=== PATIENT | female | born 1960 | race American Indian/Alaskan Native ===

== ENCOUNTER 2019-01-02 13:02 | Emergency (ER) | payer OTHER ==
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
[2019-01-02] MEDS ORDERED: ULTRAM PO ONE (16:04)
[2019-01-02] MEDS ORDERED: IBUPROFEN PO ONE (16:04)
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
[2019-01-02 16:34] VITALS: BP 174/90
== END 2019-01-02 16:32 | disposition home or self-care (01) ==
LOC: ED 13:02
DX: S16.1XXA Strain of muscle, fascia and tendon at neck level, initial encounter (principal); M25.511 Pain in right shoulder; M25.512 Pain in left shoulder; I10 Essential (primary) hypertension; F17.200 Nicotine dependence, unspecified, uncomplicated; Z79.899 Other long term (current) drug therapy; V89.2XXA Person injured in unspecified motor-vehicle accident, traffic, initial encounter; Y93.89 Activity, other specified; Y92.488 Other paved roadways as the place of occurrence of the external cause; Y99.8 Other external cause status
CPT/HCPCS: 72040; 99283

== ENCOUNTER 2019-12-01 12:24 | Observation (INO) | payer OTHER ==
[2019-12-01] MEDS ORDERED: ASPIRIN 325 MG TAB PO ONE ×2 (12:29→15:05)
--- NOTE | 2019-12-01 13:11 | XRay Report ---
CHEST 1 VIEW INDICATION / CLINICAL INFORMATION: MAIN: Chest Pain x1 day. COMPARISON: None available. FINDINGS: SUPPORT DEVICES: None. HEART / MEDIASTINUM: No significant abnormality. LUNGS / PLEURA: No significant pulmonary or pleural abnormality. No pneumothorax. ADDITIONAL FINDINGS: No significant additional findings. IMPRESSION: 1. No acute findings. Signer Name: Moise Livingston MD Signed: 12/01/2019 1:07 PM Workstation Name: [id number]
[2019-12-01] MEDS ORDERED: MORPHINE 2 MG/1 ML INJ IV ONE (13:35)
[2019-12-01] MEDS ORDERED: ONDANSETRON 4 MG/2 ML INJ IV ONE (13:35)
[2019-12-01] MEDS ORDERED: NITROGLYCERIN 2% OINT 1 GM TP ONE (13:35)
--- NOTE | 2019-12-01 13:44 | Emergency Department Report ---
ED Chest Pain HPI - General Chief Complaint: Chest Pain Stated Complaint: CHEST PAIN Time Seen by Provider: 12/01/19 13:32 Source: patient Mode of arrival: Ambulatory Limitations: No Limitations - History of Present Illness Initial Comments: This is a 59-year-old female who states that she is noncompliant with her blood pressure medicine and has not seen a doctor "in a minute". She denies a history of chest pain or cardiovascular work-up or disease. She denies a family history of coronary artery disease or pulmonary embolism. She states that hypertension is her only medical problem. Patient developed chest pain yesterday afternoon. It is been it intermittent. She has trouble describing it. It is nonpleuritic and nonradiating. It is substernal in location. Patient does not describe associated nausea or vomiting. She has not been sweaty. She denies previous similar symptoms. MD Complaint: chest pain -: Gradual Onset: during rest Pain Location: substernal Pain Radiation: none Severity: moderate Quality: other (Unable to describe) Consistency: constant Improves With: nothing Worsens With: nothing re: denies: nausea, vomting, diaphoresis Other Symptoms: denies: cough, fever, syncope Treatments Prior to Arrival: none Aspirin use within the Past 7 Days: (0) No - Related Data Previous Rx's Medication Instructions Recorded Last Taken Type Ibuprofen [Motrin 600 MG tab] 600 mg PO Q8H PRN #20 tablet 01/02/19 Unknown Rx methOCARBAMOL [Robaxin TAB] 500 mg PO Q6H PRN #14 tablet 01/02/19 Unknown Rx traMADoL [Ultram] 50 mg PO Q6HR PRN #12 tablet 01/02/19 Unknown Rx Allergies Allergy/AdvReac Type Severity Reaction Status Date / Time No Known Allergies Allergy Unverified 01/02/19 13:07 Heart Score - HEART Score History: Moderately suspicious EKG: Non-specific Age: 45-65 Risk factors: 1-2 risk factors Troponin: < normal limit HEART Score: 4 - Critical Actions Critical Actions: 4-6 pts:12-16.6% risk of adverse cardiac event. Should be admitted ED Review of Systems ROS: Stated complaint: CHEST PAIN Other details as noted in HPI Constitutional: denies: chills, fever Eyes: denies: eye pain, eye discharge, vision change ENT: denies: ear pain, throat pain Respiratory: denies: cough, wheezing Cardiovascular: chest pain. denies: palpitations Endocrine: no symptoms reported Gastrointestinal: denies: abdominal pain, nausea, diarrhea Genitourinary: denies: urgency, dysuria, discharge Musculoskeletal: denies: back pain, joint swelling, arthralgia Skin: denies: rash, lesions Neurological: denies: headache, weakness, paresthesias Psychiatric: denies: anxiety, depression Hematological/Lymphatic: denies: easy bleeding, easy bruising ED Past Medical Hx - Past Medical History Previous Medical History?: Yes Hx Hypertension: Yes - Social History Smoking Status: Current Some Day Smoker Substance Use Type: None - Medications Home Medications: Home Medications Medication Instructions Recorded Confirmed Last Taken Type Ibuprofen [Motrin 600 MG tab] 600 mg PO Q8H PRN #20 tablet 01/02/19 Unknown Rx methOCARBAMOL [Robaxin TAB] 500 mg PO Q6H PRN #14 tablet 01/02/19 Unknown Rx traMADoL [Ultram] 50 mg PO Q6HR PRN #12 tablet 01/02/19 Unknown Rx ED Physical Exam - General Limitations: No Limitations General appearance: alert, in no apparent distress - Head Head exam: Present: atraumatic, normocephalic - Eye Eye exam: Present: normal appearance. Absent: scleral icterus - ENT ENT exam: Present: mucous membranes moist - Neck Neck exam: Present: normal inspection - Respiratory Respiratory exam: Present: normal lung sounds bilaterally. Absent: respiratory distress - Cardiovascular Cardiovascular Exam: Present: tachycardia, gallop. Absent: systolic murmur, diastolic murmur, rubs - GI/Abdominal GI/Abdominal exam: Present: soft, normal bowel sounds. Absent: distended, tenderness, guarding, rebound - Extremities Exam Extremities exam: Present: normal inspection. Absent: pedal edema, joint swelling, calf tenderness - Back Exam Back exam: Present: normal inspection - Neurological Exam Neurological exam: Present: alert, oriented X3, CN II-XII intact. Absent: motor sensory deficit - Psychiatric Psychiatric exam: Present: normal affect, normal mood - Skin Skin exam: Present: warm, dry, intact, normal color. Absent: rash ED Course Vital Signs 12/01/19 12/01/19 12/01/19 12:29 14:08 14:35 Temperature 99.0 F Pulse Rate 110 H 91 H 91 H Respiratory 16 Rate Blood Pressure 196/110 196/110 Blood Pressure 196/96 [Right] O2 Sat by Pulse 100 Oximetry 12/01/19 14:37 Temperature Pulse Rate 91 H Respiratory Rate Blood Pressure 196/110 Blood Pressure [Right] O2 Sat by Pulse Oximetry - Reevaluation(s) Reevaluation #1: No further complaints of chest pain. Titrating blood pressure down with labetalol. Patient will be admitted by the hospitalist service. 12/01/19 15:05 AMBERLY score - Amberly Score Age > 65: (0) No Aspirin use within the Past 7 Days: (0) No 3 or more CAD Risk Factors: (0) No 2 or more Angina events in past 24 hrs: (0) No Known CAD with more than 50% Stenosis: (0) No Elevated Cardiac Markers: (0) No ST Deviation Greater than 0.5mm: (1) Yes AMBERLY Score: 1 ED Medical Decision Making - Lab Data Result diagrams: 12/01/19 13:04 12/01/19 13:04 Laboratory Results - last 24 hr 12/01/19 12/01/19 13:04 13:37 WBC 6.2 RBC 4.51 Hgb 13.5 Hct 39.8 MCV 88 MCH 30 MCHC 34 RDW 14.5 Plt Count 215 Lymph % (Auto) 26.7 Bowie % (Auto) 9.4 H Eos % (Auto) 0.9 Baso % (Auto) 0.5 Lymph # 1.6 Bowie # 0.6 Eos # 0.1 Baso # 0.0 Seg Neutrophils % 62.5 Seg Neutrophils # 3.8 PT 12.4 INR 0.91 APTT 28.1 D-Dimer 205.17 Laboratory Results - last 24 hr 12/01/19 12/01/19 12/01/19 13:04 13:37 13:37 WBC 6.2 RBC 4.51 Hgb 13.5 Hct 39.8 MCV 88 MCH 30 MCHC 34 RDW 14.5 Plt Count 215 Lymph % (Auto) 26.7 Bowie % (Auto) 9.4 H Eos % (Auto) 0.9 Baso % (Auto) 0.5 Lymph # 1.6 Bowie # 0.6 Eos # 0.1 Baso # 0.0 Seg Neutrophils % 62.5 Seg Neutrophils # 3.8 PT 12.4 INR 0.91 APTT 28.1 D-Dimer 205.17 Magnesium 2.40 H Total Bilirubin 0.30 Direct Bilirubin < 0.2 Indirect Bilirubin 0.1 AST 21 ALT 22 Alkaline Phosphatase 95 Total Creatine Kinase 81 CK-MB (CK-2) 1.6 CK-MB (CK-2) Rel Index 1.9 NT-Pro-B Natriuret Pep 40.26 Total Protein 8.4 H Albumin 4.9 Albumin/Globulin Ratio 1.4 - EKG Data -: EKG Interpreted by Me EKG shows normal: sinus rhythm, axis, intervals, QRS complexes (Cool R wave in standard lead to consider LVH), ST-T waves (Nonspecific inferolateral ST depression) Rate: normal - EKG Data Interpretation: nonspecific ST-T wave liang - Radiology Data Radiology results: report reviewed (No acute process), image reviewed Critical care attestation.: If time is entered above; I have spent that time in minutes in the direct care of this critically ill patient, excluding procedure time. ED Disposition Clinical Impression: Accelerated hypertension Chest pain Qualifiers: Chest pain type: unspecified Qualified Code(s): R07.9 - Chest pain, unspecified Disposition: -09 OP ADMIT IP TO THIS HOSP Is pt being admited?: Yes Does the pt Need Aspirin: Yes Condition: Stable Instructions: Chest Pain (ED), Hypertension (ED) Time of Disposition: 15:06
[2019-12-01 14:04] LABS: Basophils % (Auto) 0.5 % (0.0-1.8); Eosinophils # (Auto) 0.1 K/mm3 (0.0-0.4); Eosinophils % (Auto) 0.9 % (0.0-4.3); Hematocrit 39.8 % (30.3-42.9); Hemoglobin 13.5 gm/dl (10.1-14.3); Lymphocytes # (Auto) 1.6 K/mm3 (1.2-5.4); Lymphocytes % (Auto) 26.7 % (13.4-35.0); Mean Corpuscular HGB Conc 34 % (30-34); Mean Corpuscular Volume 88 fl (79-97); Monocytes # (Auto) 0.6 K/mm3 (0.0-0.8); Monocytes % (Auto) 9.4 % (0.0-7.3); Platelet Count 215 K/mm3 (140-440); Red Blood Count 4.51 M/mm3 (3.65-5.03); Red Cell Distribution Width 14.5 % (13.2-15.2)
[2019-12-01 14:05] LABS: Partial Thromboplastin Time 28.1 Sec. (24.2-36.6)
[2019-12-01 14:09] LABS: INR 0.91 (0.87-1.13)
[2019-12-01 14:19] LABS: Alanine Aminotransferase 22 units/L (7-56); Albumin 4.9 g/dL (3.9-5); Creatine Kinase MB 1.6 ng/mL (0.0-4.0)
[2019-12-01 14:20] LABS: Bilirubin,Direct < 0.2 mg/dL (0-0.2)
[2019-12-01 14:22] LABS: BUN/Creatinine Ratio 17; Blood Urea Nitrogen 15 mg/dL (7-17); Hemolysis Index 35
--- NOTE | 2019-12-01 15:21 | History and Physical Report ---
History of Present Illness Chief complaint: My chest is hurting History of present illness: 59 YO Female with HTN, Nicotine Dependence, Medication Noncompliance presents to ED for evaluation. Patient acknowledges medication compliance and is currently lost to outpatient primary care physician follow-up. Patient acknowledges a family history of coronary artery disease. Patient states that she has experienced pain in her chest over the past 1 day with persistently worsening pain over the past 8 hours. Patient states that the pain is currently 68/10, substernal, nonradiating, crushing in nature, not worsened with exertion, not relieved with rest. Patient acknowledges decreased exercise tolerance. Patient transported to [facility] via private vehicle for further care and evaluation. Patient seen and evaluated in the emergency department. Lab and imaging studies reviewed. Patient found to have clinical symptoms consistent with angina as well as diastolic congestive heart failure. Patient found to have a blood pressure of 215/119 which is consistent with accelerated hypertension. Patient admitted to telemetry and initiated on chest pain protocol due to high risk for cardiac decompensation. Patient denies fever, chills, palpitations, productive cough, skin rash, recent ill contacts, or known exposure to COVID-19. No prior admission for review. No medication listed at time of admission for reconc iliation. Cardiology team consulted in ED. Past History Past Medical History: hypertension, other (See HPI) Past Surgical History: No surgical history, Other (Reviewed) Social history: smoking Family history: hypertension Medications and Allergies Allergies Allergy/AdvReac Type Severity Reaction Status Date / Time No Known Allergies Allergy Unverified 01/02/19 13:07 Home Medications Medication Instructions Recorded Confirmed Last Taken Type Ibuprofen [Motrin 600 MG tab] 600 mg PO Q8H PRN #20 tablet 01/02/19 Unknown Rx methOCARBAMOL [Robaxin TAB] 500 mg PO Q6H PRN #14 tablet 01/02/19 Unknown Rx traMADoL [Ultram] 50 mg PO Q6HR PRN #12 tablet 01/02/19 Unknown Rx Review of Systems Constitutional: no weight loss, no weight gain, no fever, no chills, no sweats Ears, nose, mouth and throat: no ear pain, no ear discharge, no tinnitis, no decreased hearing, no sinus pressure Breasts: no change in shape, no swelling, no mass Cardiovascular: chest pain, high blood pressure, decreased exercise tolerance, no edema, no syncope Respiratory: no cough, no hemoptysis, no shortness of breath Gastrointestinal: no nausea, no vomiting, no diarrhea, no constipation, no change in bowel habits Genitourinary Female: no dysmenorrhea, no pelvic pain, no flank pain, no urinary frequency, no urgency Rectal: no pain, no incontinence, no bleeding Musculoskeletal: no neck stiffness, no neck pain, no shooting arm pain, no arm numbness/tingling, no low back pain, no shooting leg pain Integumentary: no rash, no pruritis, no redness, no sores, no wounds Neurological: no head injury, no transient paralysis, no paralysis, no weakness, no parathesias, no numbness, no seizures Psychiatric: no anxiety, no memory loss, no change in sleep habits, no sleep disturbances, no insomnia, no hypersomnia Endocrine: no cold intolerance, no heat intolerance, no polyphagia, no excessive thirst, no polydipsia, no polyuria, no excessive sweating Hematologic/Lymphatic: no easy bruising, no easy bleeding, no lymphedema Allergic/Immunologic: no urticaria, no persistent infections Exam - Constitutional Vitals: Temp Pulse Resp BP Pulse Ox 99.0 F 82 16 175/103 100 12/01/19 12:29 12/01/19 15:15 12/01/19 12:29 12/01/19 15:15 12/01/19 12:29 General appearance: Present: mild distress - EENT Eyes: Present: PERRL ENT: hearing intact, clear oral mucosa - Neck Neck: Present: supple, normal ROM - Respiratory Respiratory effort: normal Respiratory: bilateral: CTA - Cardiovascular Heart Sounds: Present: S1 & S2. Absent: rub, click - Extremities Extremities: pulses symmetrical, No edema Peripheral Pulses: within normal limits - Abdominal General gastrointestinal: Present: soft, non-tender, non-distended, normal bowel sounds Female genitourinary: Present: normal - Integumentary Integumentary: Present: clear, warm, dry - Musculoskeletal Musculoskeletal: gait normal, strength equal bilaterally - Psychiatric Psychiatric: appropriate mood/affect, intact judgment & insight - Neurologic Neurologic: CNII-XII intact, moves all extremities HEART Score - HEART Score EKG: Non-specific Age: 45-65 Risk factors: 1-2 risk factors Troponin: Troponin T < 0.010 ng/mL (0.00-0.029) 12/01/19 13:04 Troponin: < normal limit - Critical Actions Critical Actions: 4-6 pts:12-16.6% risk of adverse cardiac event. Should be admitted Results - Labs CBC & Chem 7: 12/01/19 13:04 12/01/19 13:04 Labs: Abnormal lab results 12/01/19 12/01/19 12/01/19 Range/Units 13:04 13:04 13:37 [place] % (Auto) 9.4 H (0.0-7.3) % Glucose 117 H (65-100) mg/dL Magnesium 2.40 H (1.7-2.3) mg/dL Total Protein 8.4 H (6.3-8.2) g/dL Assessment and Plan - Patient Problems (1) Angina at rest Current Visit: Yes Status: Acute Plan to address problem: Serial cardiac enzymes, EKG, remote telemetry, submental oxygen, morphine, nitro, aspirin, cardiology team consulted in ED, stress test.. (2) Diastolic CHF Current Visit: Yes Status: Suspected Qualifiers: Heart failure chronicity: acute Qualified Code(s): I50.31 - Acute diastolic (congestive) heart failure Plan to address problem: Strict I's/O, monitor urine output every shift, blood pressure control, afterload reduction, supplemental oxygen, BNP, d-dimer, chest x-ray, (3) Accelerated hypertension Current Visit: No Status: Acute Plan to address problem: Monitor blood pressure every shift, IV hydralazine every 6 hours as needed for systolic blood pressure greater than 155, amlodipine 10 mg daily, hydrochlorothiazide 25 mg p.o. daily. (4) Nicotine dependence Current Visit: Yes Status: Acute Qualifiers: Nicotine product type: cigarettes Substance use status: in withdrawal Qualified Code(s): F17.213 - Nicotine dependence, cigarettes, with withdrawal Plan to address problem: Smoking cessation counseling, supportive care, behavior change counseling +15 minutes. (5) Noncompliance Current Visit: Yes Status: Acute Plan to address problem: Patient counseled regarding medication and outpatient physician follow-up compliance. Patient acknowledges understanding increased risk of and worsening disease. Patient reports that she will be more compliant in the future. (6) DVT prophylaxis Current Visit: Yes Status: Acute Plan to address problem: SCD to bilateral lower extremities while in bed, patient is ambulatory.
[2019-12-01 16:08] LABS: Bilirubin,Urine NEG (Negative); Blood,Urine NEG (Negative); Color,Urine Straw (Yellow); Protein,Urine <15 mg/dL mg/dL (Negative); Urobilinogen,Urine < 2.0 mg/dL (<2.0); WBC,Urine < 1.0 /HPF (0.0-6.0)
[2019-12-01 16:19] LABS: Amphetamine Screen,Urine PRESUMPTIVE NEGATIVE; Benzodiazepines Screen,Urine PRESUMPTIVE NEGATIVE; Cannabinoid Screen,Urine PRESUMPTIVE NEGATIVE; Cocaine Screen,Urine PRESUMPTIVE NEGATIVE; Methadone Screen,Urine PRESUMPTIVE NEGATIVE; Opiate Screen,Urine PRESUMPTIVE NEGATIVE
[2019-12-01] MEDS ORDERED: MORPHINE 4 MG/1 ML INJ IV PRN (17:53)
[2019-12-01] MEDS ORDERED: NITROGLYCERIN 0.4 MG TAB SUBL SL PRN (17:53)
[2019-12-01] MEDS ORDERED: ONDANSETRON 4 MG/2 ML INJ IV PRN (17:53)
[2019-12-01] MEDS ORDERED: ACETAMINOPHEN 325 MG TAB PO PRN (17:53)
[2019-12-01] MEDS ORDERED: ASPIRIN 81 MG TAB CHEW PO STA (17:53)
[2019-12-01] MEDS: hydroCHLOROthiazide 25 MG TAB PO SCH (18:14)
[2019-12-01] MEDS: amLODIPine 5 MG TAB PO SCH ×2 (18:19→18:28)
[2019-12-01] MEDS ORDERED: hydrALAZINE 20 MG/1 ML INJ ONE (18:51)
[2019-12-01] MEDS: hydrALAZINE 20 MG/1 ML INJ IV PRN (18:51)
[2019-12-01 18:57] LABS: Chol/HDL Ratio 4.57 %
[2019-12-01] MEDS: amLODIPine 10 MG TAB PO SCH (18:57)
[2019-12-02 06:28] LABS: BUN/Creatinine Ratio 14; Blood Urea Nitrogen 13 mg/dL (7-17); Calcium 10.1 mg/dL (8.4-10.2); Hemolysis Index 33
--- NOTE | 2019-12-02 08:33 | Consultation ---
History of Present Illness Consult date: 12/02/19 Consult reason: chest pain History of present illness: Impression HTN urgency, no evidence of CHF. Atypical chest pain Medical noncompliance, she ran out of BP meds. Tobacco abuse Results negative CV markers, normal NTproBNP CXR normal EKG sinus LVH. exam benign Plan Stress thallium on tuesday restart BP meds Past History Past Medical History: hypertension, other (See HPI) Past Surgical History: No surgical history, Other (Reviewed) Social history: smoking Family history: hypertension Medications and Allergies Allergies Allergy/AdvReac Type Severity Reaction Status Date / Time No Known Allergies Allergy Unverified 01/02/19 13:07 Home Medications Medication Instructions Recorded Confirmed Last Taken Type No Known Home Medications [No 12/01/19 12/01/19 Unknown History Reported Home Medications] Active Meds: Active Medications Acetaminophen (Tylenol) 650 mg PO Q4H PRN PRN Reason: Pain MILD(1-3)/Fever >100.5/DIEHL Amlodipine Besylate (Amlodipine) 10 mg PO QDAY [facility] Last Admin: 12/01/19 18:57 Dose: 10 mg Documented by: Hydralazine HCl (Apresoline) 10 mg IV Q6HR PRN PRN Reason: Hypertension Last Admin: 12/01/19 18:51 Dose: 10 mg Documented by: Hydrochlorothiazide (Hctz) 25 mg PO QDAY [facility] Last Admin: 12/01/19 18:14 Dose: 25 mg Documented by: Morphine Sulfate (Morphine) 1 mg IV Q4H PRN PRN Reason: Pain , Severe (7-10) Nitroglycerin (Nitrostat) 0.4 mg SL Q5M PRN PRN Reason: Chest Pain Ondansetron HCl (Zofran) 4 mg IV Q8H PRN PRN Reason: Nausea And Vomiting Sodium Chloride (Sodium Chloride Flush Syringe 10 Ml) 10 ml IV BID [facility] Last Admin: 12/01/19 21:59 Dose: 10 ml Documented by: Sodium Chloride (Sodium Chloride Flush Syringe 10 Ml) 10 ml IV PRN PRN PRN Reason: LINE FLUSH Sodium Chloride (Sodium Chloride Flush Syringe 10 Ml) 10 ml IV PRN PRN PRN Reason: LINE FLUSH Review of Systems All systems: negative (stated in impression) Physical Examination Vital Signs Temp Pulse Resp BP Pulse Ox 99.0 F 110 H 16 196/96 100 12/01/19 12:29 12/01/19 12:29 12/01/19 12:29 12/01/19 12:29 12/01/19 12:29 General appearance: no acute distress HEENT: Positive: PERRL Neck: Positive: neck supple Cardiac: Positive: Reg Rate and Rhythm, S1/S2 Lungs: Positive: Normal Exam Neuro: Positive: Grossly Intact Abdomen: Positive: Unremarkable, Soft Skin: Positive: Clear Extremities: Absent: edema Results 12/01/19 13:04 12/02/19 05:34 Cardiac Enzymes 12/01/19 Range/Units 13:37 AST 21 (5-40) units/L CK-MB (CK-2) 1.6 (0.0-4.0) ng/mL Coagulation 12/01/19 Range/Units 13:37 PT 12.4 (12.2-14.9) Sec. INR 0.91 (0.87-1.13) APTT 28.1 (24.2-36.6) Sec. Lipids 12/01/19 Range/Units 15:45 Triglycerides 169 H (2-149) mg/dL Cholesterol 238 H (50-199) mg/dL HDL Cholesterol 52 (40-59) mg/dL Cholesterol/HDL Ratio 4.57 % CBC 12/01/19 Range/Units 13:04 WBC 6.2 (4.5-11.0) K/mm3 RBC 4.51 (3.65-5.03) M/mm3 Hgb 13.5 (10.1-14.3) gm/dl Hct 39.8 (30.3-42.9) % Plt Count 215 (140-440) K/mm3 Lymph # 1.6 (1.2-5.4) K/mm3 [place] # 0.6 (0.0-0.8) K/mm3 Eos # 0.1 (0.0-0.4) K/mm3 Baso # 0.0 (0.0-0.1) K/mm3 Comprehensive Metabolic Panel 12/01/19 12/01/19 12/02/19 Range/Units 13:04 13:37 05:34 Sodium 140 138 (137-145) mmol/L Potassium 4.3 4.3 (3.6-5.0) mmol/L Chloride 103.0 95.9 L (98-107) mmol/L Carbon Dioxide 24 26 (22-30) mmol/L BUN 15 13 (7-17) mg/dL Creatinine 0.9 0.9 (0.7-1.2) mg/dL Glucose 117 H 126 H (65-100) mg/dL Calcium 10.0 10.1 (8.4-10.2) mg/dL Direct Bilirubin < 0.2 (0-0.2) mg/dL Indirect Bilirubin 0.1 mg/dL AST 21 (5-40) units/L ALT 22 (7-56) units/L Alkaline Phosphatase 95 (35-129) units/L Total Protein 8.4 H (6.3-8.2) g/dL Albumin 4.9 (3.9-5) g/dL
[2019-12-02] MEDS: hydroCHLOROthiazide 25 MG TAB PO SCH (09:42)
[2019-12-02] MEDS: amLODIPine 10 MG TAB PO SCH (09:42)
--- NOTE | 2019-12-02 12:59 | Progress Note ---
Assessment and Plan /Angina at rest Monitor with Serial cardiac enzymes, EKG, remote telemetry, placed on submental oxygen, morphine, nitro, aspirin, cardiology team consulted in ED, stress test sam am /Accelerated hypertension Monitor blood pressure every shift, IV hydralazine as needed for systolic blood pressure greater than 155, placed on amlodipine 10 mg daily, hydrochlorothiazide 25 mg p.o. daily. /Nicotine dependence Smoking cessation counseling done, cont supportive care, behavior change /Noncompliance Patient counseled regarding medication and outpatient physician follow-up compliance. Patient acknowledges understanding increased risk of and worsening disease. Patient reports that she will be more compliant in the future. /DVT prophylaxis SCD to bilateral lower extremities while in bed, patient is ambulatory. Subjective Date of service: 12/02/19 Interval history: Patient seen and examined. Medical records and medication list reviewed. No acute event overnight noted by the RN. Patient complains of intermittent chest pain, denies any difficulty breathing. Patient is tolerating diet. Discussed plan of care at bedside with patient. Objective - Constitutional Vitals: Vital Signs - 12hr 12/02/19 12/02/19 12/02/19 03:57 04:40 07:33 Temperature 98.2 F Pulse Rate 92 H 92 H Pulse Rate [ 92 H Apical] Pulse Rate [ 92 H Left Radial] Pulse Rate [ 92 H Right Radial] Respiratory 16 19 Rate Blood Pressure 151/91 O2 Sat by Pulse 98 Oximetry 12/02/19 12/02/19 12/02/19 07:39 09:42 10:00 Temperature 98.3 F Pulse Rate 96 H 96 H 92 H Pulse Rate [ Apical] Pulse Rate [ Left Radial] Pulse Rate [ Right Radial] Respiratory 20 Rate Blood Pressure 155/101 155/89 O2 Sat by Pulse 96 Oximetry General appearance: Present: no acute distress, well-nourished - EENT Eyes: PERRL, EOM intact ENT: hearing intact, clear oral mucosa Ears: bilateral: normal - Neck Neck: supple, normal ROM - Respiratory Respiratory effort: normal Respiratory: bilateral: CTA - Cardiovascular Rhythm: regular Heart Sounds: Present: S1 & S2. Absent: gallop, rub Extremities: pulses intact, No edema, normal color, Full ROM - Gastrointestinal General gastrointestinal: Present: soft, non-tender, non-distended, normal bowel sounds - Integumentary Integumentary: clear, warm, dry - Musculoskeletal Musculoskeletal: 1, strength equal bilaterally - Neurologic Neurologic: moves all extremities - Psychiatric Psychiatric: memory intact, appropriate mood/affect, intact judgment & insight - Labs CBC & Chem 7: 12/01/19 13:04 12/02/19 05:34 Labs: Abnormal lab results 12/01/19 12/01/19 12/01/19 Range/Units 13:04 13:04 13:37 [place] % (Auto) 9.4 H (0.0-7.3) % Chloride (98-107) mmol/L Glucose 117 H (65-100) mg/dL Magnesium 2.40 H (1.7-2.3) mg/dL Total Protein 8.4 H (6.3-8.2) g/dL Triglycerides (2-149) mg/dL Cholesterol (50-199) mg/dL 12/01/19 12/02/19 Range/Units 15:45 05:34 [place] % (Auto) (0.0-7.3) % Chloride 95.9 L (98-107) mmol/L Glucose 126 H (65-100) mg/dL Magnesium (1.7-2.3) mg/dL Total Protein (6.3-8.2) g/dL Triglycerides 169 H (2-149) mg/dL Cholesterol 238 H (50-199) mg/dL - Imaging and cardiology Chest x-ray: report reviewed (no infiltrates) HEART Score - HEART Score History: Moderately suspicious EKG: Non-specific Age: 45-65 Risk factors: 1-2 risk factors Troponin: Troponin T < 0.010 ng/mL (0.00-0.029) 12/01/19 18:46 Troponin: < normal limit HEART Score: 4 - Critical Actions Critical Actions: 4-6 pts:12-16.6% risk of adverse cardiac event. Should be admitted
[2019-12-02] MEDS: hydrALAZINE 20 MG/1 ML INJ IV PRN (14:29)
[2019-12-03] MEDS ORDERED: REGADENOSON 0.4 MG/5 ML INJ IV ONE ×2 (08:27→08:30)
--- NOTE | 2019-12-03 12:49 | Discharge Summary ---
Providers - Providers Date of Admission: 12/02/19 09:28 Date of discharge: 12/03/19 Attending physician: ALLAN LANDERS 12/01/19 Consult to Cardiac Rehabilitation [CONS] Routine Reason For Exam: Phase I 12/01/19 17:53 Consult to Cardiology [CONS] Routine Consulting Provider: TRUPTI MCCULLOUGH Reason For Exam: angina Primary care physician: FOOTWEAR STITCHER Hospitalization Condition: Stable Pertinent studies: CXR MPI stress test 2d echo Hospital course: 59-year-old AAF with a history of HTN presented to the ER with complaints of Retrosternal chest pain and accelerated hypertension. Patient was evaluated in the ER, initial cardiac enzyme and EKG was unremarkable, chest x-ray showed no infiltrates. Patient was admitted and underwent myocardial stress test which was normal. She was placed on antihypertensive and BP was monitored. Patient was then discharged home in stable condition with outpatient follow-up. Discharge diagnosis: /Atypical chest pain, likely from GERD Monitored with Serial cardiac enzymes, EKG, remote telemetry, placed on submental oxygen, morphine, nitro, aspirin, cardiology team consulted in ED, s/p stress test today /Accelerated hypertension Monitored blood pressure every shift, IV hydralazine as needed for systolic blood pressure greater than 155, placed on amlodipine 10 mg daily, hydrochlorothiazide 25 mg p.o. daily. /Nicotine dependence Smoking cessation counseling done, cont supportive care, behavior change /Noncompliance Patient counseled regarding medication and outpatient physician follow-up compliance. Patient acknowledges understanding increased risk of and worsening disease. Patient reports that she will be more compliant in the future. /DVT prophylaxis SCD to bilateral lower extremities while in bed, patient is ambulatory. Disposition: TO HOME OR SELFCARE Time spent for discharge: 34 minutes Core Measure Documentation - Palliative Care Palliative Care/ Comfort Measures: Not Applicable - Core Measures Any of the following diagnoses?: none Exam - Constitutional Vitals: Temp Pulse Resp BP Pulse Ox 98.7 F 102 H 19 136/90 99 12/03/19 11:12/03/19 11:12/03/19 11:00 12/03/19 11:12/03/19 11:00 General appearance: Present: no acute distress, well-nourished - EENT Eyes: Present: PERRL ENT: hearing intact, clear oral mucosa - Neck Neck: Present: supple, normal ROM - Respiratory Respiratory effort: normal Respiratory: bilateral: CTA - Cardiovascular Heart Sounds: Present: S1 & S2. Absent: rub, click - Extremities Extremities: pulses symmetrical, No edema Peripheral Pulses: within normal limits - Abdominal General gastrointestinal: Present: soft, non-tender, non-distended, normal bowel sounds - Integumentary Integumentary: Present: clear, warm, dry - Musculoskeletal Musculoskeletal: gait normal, strength equal bilaterally - Psychiatric Psychiatric: appropriate mood/affect, intact judgment & insight - Neurologic Neurologic: CNII-XII intact, moves all extremities Plan Activity: advance as tolerated Weight Bearing Status: Weight Bear as Tolerated Diet: low fat, low salt Special Instructions: record daily BP diary Follow up with: PRIMARY CAREMD [Primary Care Provider] - 7 Days MANISH CARSON MD [Staff Physician] - 7 Days Prescriptions: amLODIPine 10 mg PO QDAY #30 tablet Aspirin [Aspirin BABY CHEW TAB] 81 mg PO QDAY #30 tab.chew hydroCHLOROthiazide [HCTZ] 25 mg PO QDAY #30 tablet Pantoprazole [Protonix] 40 mg PO QDAY #30 tablet
[2019-12-03 13:47] VITALS: BP 135/84
[2019-12-03] MEDS: amLODIPine 10 MG TAB PO SCH (14:00)
[2019-12-03] MEDS: hydroCHLOROthiazide 25 MG TAB PO SCH (14:00)
--- NOTE | 2019-12-03 19:46 | Event Note ---
Date: 12/03/19 [facility] thallium stress test was normal.
--- NOTE | 2019-12-03 20:27 | Treadmill Report ---
THALLIUM STRESS TEST The test was done on 12/03/2019. LEFT VENTRICLE: Left ventricular chamber size is within normal spread. Perfusion study demonstrates homogeneous uptake of the tracer in all segments, no significant defects identified. Gated analysis demonstrates normal left ventricular systolic function, ejection fraction 63%. CONCLUSION: Normal myocardial perfusion study. JOB# [id number] CA/NTS
== END 2019-12-03 16:50 | disposition home or self-care (01) ==
LOC: ED 12:24 → UNDOADMOB 17:53 → INTOOBSV 17:53 → 4A 17:53
PROVIDERS: ADMIT Internal Medicine; ATTEND Internal Medicine
DX: I20.9 Angina pectoris, unspecified (principal); I11.0 Hypertensive heart disease with heart failure; I50.31 Acute diastolic (congestive) heart failure; I16.0 Hypertensive urgency; F17.213 Nicotine dependence, cigarettes, with withdrawal; Z91.19 Patient's noncompliance with other medical treatment and regimen; Z79.899 Other long term (current) drug therapy
CPT/HCPCS: 36415; 71045; 78452; 80048; 80061; 80076; 80307; 81001; 82550; 82553; 83735; 83880; 84484; 85025; 85379; 85610; 85730; 93005; 93017; 93306; 96374; 96375; 96376; 99285; A9502; G0378; J0360; J2270; J2405; J2785